=== PATIENT | female | born 1960 | race Caucasian/White ===

== ENCOUNTER → 2017-08-26 | Outpatient (CLI) | payer BC ==
[~2017-08-26] MED LIST: HYDR-3419 PO; IBUP-1105 PO; VITA1CAP57 PO
--- NOTE | 2017-08-26 13:50 | DIAGNOSTIC IMAGING REPORT ---
CHEST 2 VIEWS ROUTINE CLINICAL HISTORY: 57 years-old Female presenting with N20.1 Ureteral [id number]. TECHNIQUE: PA and lateral views of the chest were obtained. COMPARISON: None. FINDINGS: Cardiomediastinal silhouette normal. Lungs and pleural spaces clear. Osseous structures normal. Upper abdomen normal. IMPRESSION: 1. No acute cardiopulmonary disease. Electronically signed by: Babak Figueredo M.D. 08/26/2017 1:49 PM Dictated Date/Time: 08/26/2017 1:48 PM
--- NOTE | 2017-08-26 13:53 | DIAGNOSTIC IMAGING REPORT ---
KUB HISTORY: Left-sided nephrolithiasis. N20.1 Ureteral [id number] COMPARISON: Chest radiographs of same day. FINDINGS: The bowel gas pattern is non-obstructive. There is no organomegaly. Clips project over the pelvis suggesting bilateral tubo-ovarian occlusion devices. Calcifications are seen within the pelvis suggesting probable phleboliths. Renal shadows are partially obscured by overlying bowel gas. 3 mm radiodensity projecting over the superior pole left kidney is suspicious for possible nephrolithiasis. No ureteral calculi identified. No right-sided nephrolithiasis identified. No pneumoperitoneum or pneumatosis. No fracture. IMPRESSION: 1. 3 mm radiodensity projecting over the superior pole left kidney suggests nephrolithiasis. No definite ureteral calculi identified. 2. Multiple calcifications of the pelvis suggest phleboliths. Electronically signed by: Barney Gonzales M.D. 08/26/2017 1:52 PM Dictated Date/Time: 08/26/2017 1:49 PM
[2017-08-26 14:39] LABS: BASO % 0.6 %; BASO ABS # 0.04 K/uL (0-0.2); EOS % 0.7 %; EOS ABS # 0.05 K/uL (0-0.5); HEMATOCRIT 44.1 % (37-47); HEMOGLOBIN 14.6 g/dL (12.0-16.0); IG# 0.03 K/uL (0.00-0.02); LYMPH % 30.6 %; LYMPH ABS # 2.04 K/uL (1.2-3.4); MEAN CELL VOLUME 99.3 fL (80-100); MEAN CORPUSCULAR HEMOGLOBIN 32.9 pg (25-34); MEAN CORPUSCULAR HGB CONC 33.1 g/dl (32-36); MEAN PLATELET VOLUME 10.5 fL (7.4-10.4); MONO % 4.2 %; MONO ABS # 0.28 K/uL (0.11-0.59); NEUT % 63.5 %; NEUT ABS # 4.23 K/uL (1.4-6.5); PLATELET COUNT 285 K/uL (130-400); RED CELL DISTRIBUTION WIDTH CV 13.8 % (11.5-14.5); RED CELL DISTRIBUTION WIDTH SD 49.5 fL (36.4-46.3); WHITE BLOOD COUNT 6.67 K/uL (4.8-10.8)
== END | disposition home or self-care (01) ==
LOC: C.RAD 13:09
PROVIDERS: ATTEND Urology
DX: N20.1 Calculus of ureter (principal)

== ENCOUNTER → 2017-09-02 | Outpatient (CLI) | payer BC ==
--- NOTE | 2017-09-02 08:09 | DIAGNOSTIC IMAGING REPORT ---
KUB CLINICAL HISTORY: Ureteral stone. COMPARISON STUDY: CT of the abdomen and pelvis August 19, 2017 and KUB August 26, 2017. FINDINGS: Evaluation for ureteral calculi difficult given numerous phleboliths. A 5 mm x 2 mm left pelvic calcification could reflect a calculus at the left ureterovesical junction. The small left renal calculi shown on CT of August 19, 2017 are not visualized likely due to their size. There are tubal ligation clips. IMPRESSION: 5 mm x 2 mm left pelvic calcification which could reflect a calculus at the left ureterovesical junction. Electronically signed by: Willard Rodriguez M.D. 09/02/2017 8:08 AM Dictated Date/Time: 09/02/2017 8:02 AM
== END | disposition home or self-care (01) ==
LOC: C.RAD 06:08
PROVIDERS: ATTEND Urology
DX: N20.1 Calculus of ureter (principal)

== ENCOUNTER → 2017-09-02 | Day surgery (SDC) | payer BC ==
[2017-08-30 07:34] VITALS: Ht 160 cm; Wt 81.8 kg
[~2017-09-02] VITALS: Ht 160 cm; Wt 81.8 kg
[~2017-09-02] MED LIST changes: +ATROPINE SULFATE 0.1 MG/ML 5ML SYR IV PRN; +CIPROFLOXACIN 400MG / D5W IV SCH; +DEXAMETHASONE SOD INJ 4 MG/ML VIAL ONE; +EpHEDrine SULFATE INJ 50 MG/ML AMP IV PRN; +FENTANYL CITRATE INJ 50 MCG/1 ML 2 ML VIAL IV PRN; +FENTANYL CITRATE INJ 50 MCG/1 ML 2 ML VIAL ONE; +LACTATED RINGER'S 1000ML 1,000 ML IV SCH; +LIDOCAINE HCL 2% 2 ML VIAL (20MG/ML) ONE; +MIDAZOLAM HCL 1 MG/ML 2ML VIAL ONE; +ONDANSETRON INJ 2 MG/ML 2 ML VIAL IV PRN; +ONDANSETRON INJ 2 MG/ML 2 ML VIAL ONE; +PROMETHAZINE HCL INJ 6.25 MG in SODIUM CHLORIDE 0.9% 50ML 50 ML IV PRN; +PROPOFOL IV EMULSION 10 MG/ML 20 ML VIAL IV ONE
--- NOTE | 2017-09-02 08:48 | History & Physical Bridge - SC ---
H&P Re-Evaluation Bridge Note: I have examined the patient, reviewed the History & Physical and in the interval since the performance of the History & Physical I have noted the following changes of clinical significance: No changes noted
--- NOTE | 2017-09-02 09:33 | [facility] Post Operative Brief Note ---
Immediate Operative Summary Operative Date Sep 02, 2017. Pre-Operative Diagnosis Left ureteral stone Post-Operative Diagnosis Same as pre-op Procedure(s) Performed Left Extracorporeal Shock Wave Lithotripsy - Ureteral Surgeon Dr. Juarez Tower Technician Surgeon(s) None Estimated Blood Loss 0 mL Findings l ureteral stone Specimens None Disposition Recovery Room / PACU
--- NOTE | 2017-09-02 09:38 | Discharge Instructions-SurgCtr ---
Discharge Instructions Date of Service Sep 02, 2017. Visit Reason for Visit: Stones Discharge Discharge Diagnosis / Problem: left ureteral stone Discharge Goals Goal(s): Decrease discomfort, Increase independence, Improve disease control Medications Stopped Medications Name(s): ibuprofen stopped last dose last tuesday. Activity Recommendations Activity Limitations: per Instructions/Follow-up section (no driving on narcotics) Anesthesia . Post Anesthesia Instructions: If you have had General Anesthesia or IV Sedation: * Do not drive today. * Resume driving when surgeon permits. * Do not make important decisions or sign legal documents today. * Call surgeon for: 1. Temperature elevations greater than 101 degrees F. 2. Uncontrollable pain. 3. Excessive bleeding. 4. Persistent nausea and vomiting. 5. Medication intolerance (nausea, vomiting or rash). * For nausea and vomiting use only clear liquids such as: tea, soda, bouillon until nausea subsides, then gradually increase diet as tolerated. * If you have any concerns or questions, call your surgeon's office. If physician is unavailable and it is an emergency, call 911 or go to the nearest emergency room. . Diet Recommendations Home Diet: resume previous diet Procedures Procedures Performed: Left Extracorporeal Shock Wave Lithotripsy - Ureteral Pending Studies Studies pending at discharge: no Medical Emergencies . Who to Call and When: Medical Emergencies: If at any time you feel your situation is an emergency, please call 911 immediately. . Non-Emergent Contact Non-Emergency issues call your: Urologist Call Non-Emergent contact if: temperature is above 100.5, temperature is above 101, your pain is not controlled, your pain is worsening . . "Provider Documentation" section prepared by Mike Juarez. .
[2017-09-02 10:45] VITALS: TEMP 36.7
--- NOTE | 2017-09-02 10:47 | Anesthesia Progress Nt - [facility] ---
Anesthesia Post Op Note Date & Time Sep 02, 2017 at 10:47 Vital Signs Pain Intensity: 0 Vital Signs Past 12 Hours Date Time Temp Pulse Resp B/P (MAP) Pulse Ox O2 Delivery O2 Flow Rate FiO2 09/02/17 10:45 36.7 73 16 131/86 (101) 97 Room Air 09/02/17 10:35 129/77 09/02/17 10:33 69 16 09/02/17 10:33 36.4 77 16 129/77 95 Room Air 09/02/17 10:33 72 16 95 09/02/17 10:30 132/83 09/02/17 10:28 83 19 99 09/02/17 10:28 83 19 09/02/17 10:25 133/79 09/02/17 10:23 74 15 09/02/17 10:23 75 15 97 09/02/17 10:20 134/77 09/02/17 10:18 79 17 09/02/17 10:18 79 17 97 09/02/17 10:15 124/82 09/02/17 10:13 77 16 97 09/02/17 10:13 78 16 09/02/17 10:10 136/82 09/02/17 10:08 85 7 09/02/17 10:08 84 7 99 09/02/17 10:05 121/66 09/02/17 10:03 76 12 09/02/17 10:03 74 12 99 09/02/17 10:00 124/79 09/02/17 09:58 85 14 09/02/17 09:58 82 14 99 09/02/17 09:55 122/82 09/02/17 09:53 82 15 127/79 99 09/02/17 09:53 82 15 09/02/17 09:53 36.8 86 18 122/79 99 Diffusion Mask 6 09/02/17 07:11 36.5 83 18 125/83 (97) 97 Room Air Notes Mental Status: alert / awake / arousable, participated in evaluation Pt Amnestic to Procedure: Yes Nausea / Vomiting: adequately controlled Pain: adequately controlled Airway Patency, RR, SpO2: stable & adequate BP & HR: stable & adequate Hydration State: stable & adequate Anesthetic Complications: no major complications apparent
[2017-09-02 11:10] VITALS: BP 126/85; PULSE 76; O2SAT 95
--- NOTE | 2017-09-02 15:23 | OPERATIVE REPORT ---
DATE OF OPERATION: 09/02/2017 PREOPERATIVE DIAGNOSIS: Left ureteral stone. POSTOPERATIVE DIAGNOSIS: Same. PROCEDURE: Left ureteral ESWL. SURGEON: Mike Juarez MD. ANESTHESIA: General. INDICATIONS: The patient is a 57-year-old female who had a CAT scan that showed a left distal stone that was somewhat difficult to visualize on KUB. There was an obscured area and knowing where the stone was in the CAT scan just above several clips, was able to visualize what we thought was a stone in the distal left ureter that was corresponding to the size of the stone approximately 7 mm. Lithotripsy was performed on this with 3000 shocks being given, the majority at level 5. At the end of the procedure, the patient was transferred to the recovery room in stable condition. I attest to the content of the Intraoperative Record and any orders documented therein. Any exception s are noted below.
== END | disposition home or self-care (01) ==
LOC: X.SURG 08-30 11:09
PROVIDERS: ATTEND Urology
DX: N20.1 Calculus of ureter (principal); G47.33 Obstructive sleep apnea (adult) (pediatric); F17.200 Nicotine dependence, unspecified, uncomplicated; Z80.1 Family history of malignant neoplasm of trachea, bronchus and lung; Z83.3 Family history of diabetes mellitus

== ENCOUNTER → 2017-09-14 | Outpatient (CLI) | payer BC ==
[~2017-09-14] MED LIST changes: -ATROPINE SULFATE 0.1 MG/ML 5ML SYR IV PRN; -CIPROFLOXACIN 400MG / D5W IV SCH; -DEXAMETHASONE SOD INJ 4 MG/ML VIAL ONE; -EpHEDrine SULFATE INJ 50 MG/ML AMP IV PRN; -FENTANYL CITRATE INJ 50 MCG/1 ML 2 ML VIAL IV PRN; -FENTANYL CITRATE INJ 50 MCG/1 ML 2 ML VIAL ONE; -LACTATED RINGER'S 1000ML 1,000 ML IV SCH; -LIDOCAINE HCL 2% 2 ML VIAL (20MG/ML) ONE; -MIDAZOLAM HCL 1 MG/ML 2ML VIAL ONE; -ONDANSETRON INJ 2 MG/ML 2 ML VIAL IV PRN; -ONDANSETRON INJ 2 MG/ML 2 ML VIAL ONE; -PROMETHAZINE HCL INJ 6.25 MG in SODIUM CHLORIDE 0.9% 50ML 50 ML IV PRN; -PROPOFOL IV EMULSION 10 MG/ML 20 ML VIAL IV ONE
== END | disposition home or self-care (01) ==
LOC: C.LABSPEC 17:20
PROVIDERS: ATTEND Urology
DX: N20.1 Calculus of ureter (principal)

== ENCOUNTER → 2017-09-14 | Outpatient (CLI) | payer BC ==
--- NOTE | 2017-09-14 12:18 | DIAGNOSTIC IMAGING REPORT ---
KUB CLINICAL HISTORY: N20.1 Ureteral [id number] nephrocalcinosis COMPARISON STUDY: 09/02/2017 FINDINGS: The soft tissues, psoas shadows, renal outlines and intestinal gas pattern appear normal. There is no evidence for bowel obstruction. No abnormal abdominal calcifications are seen. The calcification of the distal left ureter measuring 5 x 2 mm on the prior study that has passed. IMPRESSION: Apparent interval passage of the 5 x 2 mm low pelvic calcification The above report was generated using voice recognition software. It may contain grammatical, syntax or spelling errors. Electronically signed by: Nathanael Mascorro M.D. 09/14/2017 12:17 PM Dictated Date/Time: 09/14/2017 12:14 PM
== END | disposition home or self-care (01) ==
LOC: C.RAD 11:39
PROVIDERS: ATTEND Urology
DX: N20.1 Calculus of ureter (principal)

== ENCOUNTER → 2018-01-04 | Outpatient (CLI) | payer BC ==
--- NOTE | 2018-01-04 14:35 | DIAGNOSTIC IMAGING REPORT ---
IV PYELOGRAM CLINICAL HISTORY: Follow-up ureterolithiasis. COMPARISON STUDY: KUB dated 09/14/2017. Abdominal CT dated 08/19/2017. TECHNIQUE: An abdominal lead software development engineer radiograph is performed. IVP pyelogram was then performed following the IV administration of 100 cc of Optiray 300, tomographic images are acquired in the corticomedullary and excretory phases of enhancement. Overhead views of the renal collecting system and bladder were obtained in multiple obliquities both pre and post void. FINDINGS: Abdominal lead software development engineer radiograph shows a nonobstructed abdominal bowel gas pattern. Surgical clips are noted in the pelvis. There is no radiographic evidence of nephrolithiasis. Numerous phleboliths are seen in the pelvis. The bony structures appear intact. Following contrast menstruation there is symmetric renal cortical enhancement and contrast excretion. No hydronephrosis is seen. A small extrarenal pelvis is noted on the right. There are no filling defects identified within the renal pelvis bilaterally or along the course of the ureters to suggest urothelial lesion. The bladder is normal as imaged. There is a small to moderate post void residual. IMPRESSION: 1. There is no radiographic evidence of nephrolithiasis. 2. Unremarkable IV pyelogram. 3. There is a small to moderate postvoid bladder residual. Electronically signed by: Jt Mondragon M.D. 01/04/2018 2:34 PM Dictated Date/Time: 01/04/2018 2:31 PM
== END | disposition home or self-care (01) ==
LOC: C.RAD 12:43
PROVIDERS: ATTEND Urology
DX: N20.1 Calculus of ureter (principal)

== ENCOUNTER 2022-03-05 06:27 | Observation (INO) ==
--- NOTE | 2022-01-28 09:15 | PAT Medication Instructions ---
Medication Instructions Date of Service January 28, 2022 Home Medications ibuprofen 200 mg tablet 600 mg PO BID PRN omeprazole 20 mg capsule,delayed release 20 mg PO QAM ascorbic acid (vitamin C) 1,000 mg tablet (Vitamin C With Tona Hips) 1 g PO QAM calcium carbonate 500 mg-vitamin D3 3.125 mcg (125 unit) tablet 1 tab PO BID zinc 50 mg capsule 50 mg PO QAM ASK your surgeon for instructions ibuprofen 200 mg tablet 600 mg PO BID PRN DO NOT take the morning of surgery ascorbic acid (vitamin C) 1,000 mg tablet (Vitamin C With Tona Hips) 1 g PO QAM calcium carbonate 500 mg-vitamin D3 3.125 mcg (125 unit) tablet 1 tab PO BID zinc 50 mg capsule 50 mg PO QAM Take morning of surgery With a small sip of water, OTHERWISE NOTHING TO EAT OR DRINK AFTER MIDNIGHT: omeprazole 20 mg capsule,delayed release 20 mg PO QAM Take evening before surgery calcium carbonate 500 mg-vitamin D3 3.125 mcg (125 unit) tablet 1 tab PO BID Other Notes If you have any questions please call us at [phone] or [phone] or [phone] or [phone]
--- NOTE | 2022-02-09 10:55 | Anesthesiology Consultation ---
Date of Service February 09, 2022 Assessment & Plan (1) Encounter for pre-operative examination: COVID screening: Per assessment on 02/09: No known COVID-19 positive contacts or current COVID-19 related symptoms. Travel screen negative x 2+ weeks. Patient was Covid positive (home test) 01/25. Pt had Covid positive PCR at [facility] 01/27 (report scanned into [employer]). Symptoms at time of fatigue, cold symptoms which have resolved. Surgeon arranging preop COVID testing. Awaiting results. Chart Review Chart Review: Acceptable Risk for Surgery and Patient seen in Pre Admission Testing Teaching & Discussion Pre-Anesthesia Teaching/Discussion Notes: Instructed NPO after midnight before surgery,except medications with 15 cc of water. Medication instructions pr ovided according to the PAT guidelines. History Surgery Operation Date: 03/05/22 07:00 Proposed Procedures p Right Total Knee Arthroplasty - Wallace Pinto DO Height/Weight Height: 5 ft 3 in Weight: 101.9 kg Allergies Allergy/AdvReac Type Severity Reaction Status Date / Time bee venom protein (honey bee) Allergy Severe ANAPHYLAXIS Verified 01/27/22 08:52 No Known Drug Allergies Allergy Unknown . Verified 01/27/22 08:52 Medications Home Medications Medication Instructions Recorded Confirmed Last Taken ibuprofen 200 mg tablet 600 mg PO BID PRN 12/16/21 01/27/22 Unknown omeprazole 20 mg capsule,delayed 20 mg PO QAM 12/16/21 01/27/22 Unknown release ascorbic acid (vitamin C) 1,000 mg 1 g PO QAM 01/27/22 01/27/22 Unknown tablet (Vitamin C With Tona Hips) calcium carbonate 500 mg-vitamin 1 tab PO BID 01/27/22 01/27/22 Unknown D3 3.125 mcg (125 unit) tablet zinc 50 mg capsule 50 mg PO QAM 01/27/22 01/27/22 Unknown Past Medical History Medical History Cancer BCC (arm) COVID-19 virus detected Covid positive home test (01/25/22) and PCR test (01/27/22- report scanned into [employer]) > symptoms at time: cold symptoms, fatigue > resolved GERD (gastroesophageal reflux disease) Kidney stones 2016 Migraine Hx Osteoarthritis Sleep apnea CPAP (compliant) Exercise / Class Metabolic Activity III < 4 Walking/Shop/Light housework (one FS (no CP, occ mild SOB)) Past Family History Family History Mother Family history of reaction to anesthesia PONV Grandmother (Maternal) Family history of reaction to anesthesia PONV-SLOW TO WAKE UP Aunt No problems noted. Family/Other Family history of diabetes mellitus Uncle Family history of diabetes mellitus Past Surgical History Surgical History History of bilateral tubal ligation History of breast biopsy BENIGN History of colonoscopy 2015 History of dilatation and curettage History of lithotripsy Past Anesthesia History No Hx of Anesthesia Complications FHX: Mother/grandmother- PONV, grandmother- slow to wake History of PONV No Hx of PONV (Pt reports that she has never had PONV personally but has strong family hx- she states she has received pretreatment in the past- no further details) Social History Smoking Status: Former smoker Do You Dip or Chew Tobacco: No Smoking End Date: Hx Alcohol Use: Yes Alcohol type: wine alcohol intake frequency: a few times a month Hx Substance Use: No Review of Systems Patient denies chest pain, shortness of breath, fever, chills, cough, wheezing, palpitations. Physical Exam Vital Signs VITALS BP 117/75 P 86 TEMP 98.2 SP02 93%RA RESP 18 PHYSICAL Full cervical extension range of motion. Full TMJ range of motion. TMD 3 finger breaths Mallampati Score 2 Dentition: intact, possible crown Lungs: clear throughout to auscultation Cardiac: regular rate and rhythm, no murmurs noted Spine: normal Carotid arteries: negative bruit Extremities: no edema Short neck Lab Results Anesthesia Preop Results Results Anesthesia Widget: WBC 8.02 K/uL (4.8-10.8) 02/09/22 Hgb 12.3 g/dL (12.0-16.0) 02/09/22 Hct 40.2 % (37-47) 02/09/22 Plt 353 K/uL (130-400) 02/09/22 Na 143 mmol/L (136-145) 02/09/22 K 4.1 mmol/L (3.5-5.1) 02/09/22 Cl 106 mmol/L (98-107) 02/09/22 CO2 31 mmol/L (21-32) 02/09/22 BUN 12 mg/dl (6-23) 02/09/22 Creat 0.55 mg/dl (0.6-1.2) L 02/09/22 Glucose Level 84 mg/dl (70-99(Fasting)) 02/09/22 PT 10.6 Seconds (9.0-12.0) 02/09/22 PTT 25.1 Seconds (21.0-31.0) 02/09/22 INR 1.0 (0.9-1.1) 02/09/22 Blood Type O Positive 02/09/22 Antibody Screen NEGATIVE 02/09/22 Testing Electrocardiogram Date: 02/09/22 NSR at 83bpm. Chest X-Ray Date: 02/09/22 FINDINGS: The cardiac silhouette is upper limits of normal in size. No pneumothorax, pleural effusion, airspace consolidation or overt pulmonary edema. Eventration of the right hemidiaphragm. Degenerative changes of the shoulders and spine. IMPRESSION: No acute process.
--- NOTE | 2022-03-04 07:41 | History & Physical Report ---
Date of Service March 04, 2022 Assessment & Plan (1) Osteoarthritis of right knee: We will proceed with a right total knee arthroplasty. Postoperatively she will be started on aspirin for DVT prophylaxis and kept overnight in the hospital for postop medical management. She plans to have the hospital set up home health upon discharge. History of Present Illness Chief Complaint: Osteoarthritis of the right knee. Primary Care Provider: Geena Encinas DO Tamera is a pleasant 61-year-old female who has been dealing with chronic worsening bilateral knee pain right worse than left. X-rays have shown advanced osteoarthritis of both knees. After failing extensive conservative treatment including years of injections, she has elected to proceed with a right total knee arthroplasty. . Allergies Allergy/AdvReac Type Severity Reaction Status Date / Time bee venom protein (honey bee) Allergy Severe ANAPHYLAXIS Verified 01/27/22 08:52 No Known Drug Allergies Allergy Unknown . Verified 01/27/22 08:52 Home Medications Medication Instructions Recorded Confirmed Type ibuprofen 200 mg tablet 600 mg PO BID PRN Pain 12/16/21 01/27/22 History omeprazole 20 mg capsule,delayed 20 mg PO QAM 12/16/21 01/27/22 History release ascorbic acid (vitamin C) 1,000 mg 1 g PO QAM 01/27/22 01/27/22 History tablet (Vitamin C With Tona Hips) calcium carbonate 500 mg-vitamin 1 tab PO BID 01/27/22 01/27/22 History D3 3.125 mcg (125 unit) tablet zinc 50 mg capsule 50 mg PO QAM 01/27/22 01/27/22 History Past Med/Surg History Medical History Cancer BCC (arm) COVID-19 virus detected Covid positive home test (01/25/22) and PCR test (01/27/22- report scanned into [employer]) > symptoms at time: cold symptoms, fatigue > resolved GERD (gastroesophageal reflux disease) Kidney stones 2016 Migraine Hx Osteoarthritis Sleep apnea CPAP (compliant) Surgical History History of bilateral tubal ligation History of breast biopsy BENIGN History of colonoscopy 2016 History of dilatation and curettage History of lithotripsy Family History Mother Family history of reaction to anesthesia PONV Grandmother (Maternal) Family history of reaction to anesthesia PONV-SLOW TO WAKE UP Aunt No problems noted. Family/Other Family history of diabetes mellitus Uncle Family history of diabetes mellitus Social History Smoking Status: Former smoker Second Hand Exposure: Yes (SPOUSE USED TO SMOKE); Hx Alcohol Use: Yes Alcohol type: wine Hx Substance Use: No Preferred Language: German Communication Ability: Effective Bench Molder Apprentice Required: No Beliefs That Will Affect Care: None Current Living Situation: Spouse current occupational status: retired Feels Safe at Home: Yes Assistive Devices: Cane and Glasses Review of Systems All systems reviewed & are unremarkable except as noted in HPI & below. Physical Exam On physical examination the right knee, she has a varus deformity. She has range of motion of 0 to 120 degrees. She has a trace effusion. She has pain of the distal femoral condyles.. Constitutional WD/WN, vitals as above Respiratory normal respiratory effort, lungs clear to auscultation Cardiovascular RRR, no murmur, no edema Results & Data Results & Data Laboratory Results . Diagnostic Findings X-rays of the right knee show advanced osteoarthritis with joint space narrowing, osteophyte formation, and [id number] articulation. PG Care Time/CCT Total # of Minutes Spent Total Time Spent with Patient: Total time spent is greater than 50% in coordination of care (as documented) at patient's floor/unit and/or counseling patient: Coding Level of Care Code None Diagnoses Osteoarthritis of right knee M17.11
[~2022-03-05 06:27] MED LIST changes: +ACETAMINOPHEN 500 MG TAB PO SCH; +GABAPENTIN 600 MG DOSE PO SCH; -HYDR-3419 PO; -IBUP-1105 PO; +Ketorolac (*for OR use only*) 30 MG, dexAMETHasone 4 MG, KETAMINE HCL (**OR use only) 1... INFIL SCH; +LR 500ML BOLUS, THEN 15ML/HR IV SCH; +LR 60ML/HR IV SCH; +TRANEXAMIC ACID 1,000 MG **IV Intra-op IV SCH; +TRANEXAMIC ACID 1,000 MG **IV Pre-op IV SCH; -VITA1CAP57 PO; +ceFAZolin 2000MG 2,000 MG/15 ML SYR IV SCH; +dexAMETHasone 4 MG TAB PO SCH
[2022-03-05] MEDS ORDERED: BUPIVACAINE 0.5 % 5 MG/1 ML PF 10ML VIAL ONE (06:37)
--- NOTE | 2022-03-05 06:42 | History & Physical Bridge Note ---
Date of Service March 05, 2022 History & Physical Bridge Note I have examined the patient, reviewed the History & Physical and in the interval since the performance of the History & Physical I have noted the following changes of clinical significance: no changes noted
[2022-03-05] MEDS ORDERED: LIDOCAINE 2% MPF LOCAL 5 ML VIAL INFIL ONE (06:45)
[2022-03-05] MEDS ORDERED: PROPOFOL IV EMULSION 10 MG/ML 20 ML VIAL IV ONE (06:45)
[2022-03-05] MEDS ORDERED: MIDAZOLAM HCL 1 MG/ML 2ML VIAL ONE (06:45)
[2022-03-05] MEDS ORDERED: ROPIVACAINE 0.5% 5 MG/ML 30 ML VIAL ONE (06:57)
[2022-03-05] MEDS ORDERED: ORTHO JOINT ANESTHETIC ONE (07:07)
[2022-03-05] MEDS ORDERED: ePHEDrine sulfate 50 MG/ML AMP IV PRN (07:25)
[2022-03-05] MEDS ORDERED: ATROPINE SULFATE 0.1 MG/ML 10ML SYR IV PRN (07:25)
[2022-03-05] MEDS ORDERED: ONDANSETRON INJ 2 MG/ML 2 ML VIAL IV PRN ×2 (07:25→11:37)
[2022-03-05] MEDS ORDERED: fentaNYL citrate 100 MCG/2 ML VIAL IV PRN (07:25)
--- NOTE | 2022-03-05 09:25 | Operative Report ---
PG Post Operative Report Pre & Post Diagnosis Operation Date: 03/05/22 08:00 Pre-Op Diagnosis: Right Knee Osteoarthritis Post-Op Diagnosis: Right Knee Osteoarthritis I identified the patient and participated in the time-out.: Yes Procedure Operation Date: 03/05/22 08:00 Actual Procedures p Right Total Knee Arthroplasty(Right) - Wallace Pinto DO Surgeon Wallace Pinto DO Redevelopment Specialist Wallace Higginbotham PA-C Estimated Blood Loss 30 Findings Consistent with Post-Op Diagnosis Specimens Right femoral and tibial bone Description of Procedure Implants used: I used a Ankit Persona total knee arthroplasty system with a size 9 narrow PS femur, E tibia with a 30 mm stem extension, 31 oval patella, and a size 10 CPS polyethylene bearing. All components were cemented in place with Biomet cement. Tamera arrived [facility] for the above procedure. She was seen in the preoperative holding area and the operative extremity was identified and signed. She was given a preoperative antibiotic, TXA, a spinal anesthetic and an adductor nerve block. She was taken back to the operating room and laid on the table in supine position. She was given basic sedation. The operative knee was then prepped and draped in sterile fashion. A timeout was done, and the patient and the operative extremity was properly identified. A midline incision was made directly over the patella. Dissection was taken down to the extensor mechanism. A subvastus arthrotomy was used. The medial retinaculum was released and the fat pad was mostly excised. The knee was flexed and the ACL, PCL, and meniscus were removed. A drill was sent down the center of the femoral canal followed by an intramedullary fly. Off that fly a distal femoral cutting block was placed. 9 mm was resected off the distal femur at 5 of valgus. A posterior referencing AP sizing guide was then placed on the distal femur. The femur measured to be a size 9. 2 drill holes were placed in 3 of external rotation. A 4-in-1 cutting block was then impacted into place. Anterior, posterior, and chamfer cuts were then made. The proximal tibia was then exposed. An external tibial alignment guide was placed. A tibial cut guide was then anchored in place and the proximal tibia was then resected. The posterior aspect of the knee was then opened up and any additional meniscus fragments and osteophytes were removed. The tibia measured to be a size E. The tibial plate was then placed in the appropriate rotation and the tibia was drilled and punched. Trial components were then placed. I used a size 10 CPS polyethylene insert. The knee was brought through a full range of motion and felt to be stable. The peg holes for the femoral component were then drilled. The patella was then everted and 9 mm was resected off the posterior aspect of the patella. The patella measured to be a size 31 oval. 3 peg holes were then drilled. A trial patella was placed. The knee was once again brought through a full range of motion and felt to be stable. Trial components were then removed. The surrounding soft tissues were injected with 100 cc of an orthopedic pain control cocktail. All components were then cemented into place with Biomet cement. The final polyethylene insert was then snapped into place. Once cement was dry the tourniquet was deflated. Hemostasis was obtained. A dilute betadyne lavage was then done for 3 minutes. The joint was then irrigated with normal saline solution. The subvastus arthrotomy was then closed with #1 Vicryl suture. The skin was closed with 2-0 Vicryl, 3-0V lock suture, and kathy. A soft compressive dressing was placed. She was then transferred to a hospital bed and taken to the postanesthesia care unit in stable condition. She tolerated the procedure well. Wallace Higginbotham PA-C, was present for the entire procedure. He was critical for patient positioning, prepping, draping, retraction exposure, wound closure and application of sterile dressing. I attest to the content of the Intraoperative Record and any orders documented therein. Any exceptions are noted below.
--- NOTE | 2022-03-05 10:45 | XRay Report ---
XR knee RT 1 or 2V routine CLINICAL HISTORY: Surgical Post Op TECHNIQUE: 2 views of the right knee were obtained. Comparison: None available at the time of this dictation. FINDINGS: Patient is status post total knee arthroplasty with expected postsurgical changes including soft tiss ue swelling and subcutaneous emphysema. No periarticular lucency or hardware fracture is seen. Joint spaces are well-preserved. No joint effusion is seen. No soft tissue abnormality is seen. IMPRESSION: Expected postoperative appearance status post placement of total knee arthroplasty. ACT 112: Negative or not required by law. Electronically signed by: Nahum Shearer M.D. 03/05/2022 10:43 AM
--- NOTE | 2022-03-05 11:21 | Anesthesiology Progress Note ---
Date of Service March 05, 2022 Anesthesia Post Procedure Vital Signs Vital Signs: Temp Pulse Pulse Resp BP Pulse Ox O2 Del Method 03/05/22 10:25 97.9 F 92 H 20 139/86 92 Room Air 03/05/22 10:15 90 21 150/97 H 93 Room Air 03/05/22 10:05 86 18 139/86 97 Oxymask 03/05/22 10:45 97.9 F 86 17 142/89 H 94 Nasal Cannula 03/05/22 10:35 97.9 F 85 17 136/97 94 Nasal Cannula 03/05/22 09:55 90 20 144/98 H 98 Oxymask 03/05/22 09:48 98.1 F 94 H 18 134/91 97 Oxymask 03/05/22 06:54 97.9 F 94 H 18 140/85 95 Room Air 03/05/22 06:54 Room Air, CPAP O2 Flow Rate 03/05/22 10:25 03/05/22 10:15 03/05/22 10:05 3 03/05/22 10:45 2 03/05/22 10:35 2 03/05/22 09:55 5 03/05/22 09:48 7 03/05/22 06:54 03/05/22 06:54 Pain Intensity Right Knee: Pain Intensity: 0 Transfer of Care Handoff Completed per policy Notes Mental Status: alert / awake / arousable and participated in evaluation Patient Amnestic to Procedure: Yes Nausea / Vomiting: adequately controlled Pain: adequately controlled Airway Patency, RR, SpO2: stable & adequate BP & HR: stable & adequate Hydration State: stable & adequate Neuraxial Anesthesia: was administered and sensory block is resolving Anesthetic Complications: no major complications apparent and Pt Satisfied with anesthetic care
[2022-03-05] MEDS ORDERED: bisacodyL 10 MG SUPP PR PRN (11:37)
[2022-03-05] MEDS ORDERED: HYDROmorphone INJ 0.5 MG/0.5 ML SYR IV PRN (11:37)
[2022-03-05] MEDS ORDERED: NALOXONE HCL 0.4 MG/1 ML VIAL/CARP IV PRN (11:37)
[2022-03-05] MEDS ORDERED: METOCLOPRAMIDE HCL INJ 5 MG/ML 2 ML VIAL IV PRN (11:37)
[2022-03-05] MEDS ORDERED: MAGNESIUM HYDROXIDE SUSP 30 ML UDC PO PRN (11:37)
[2022-03-05] MEDS: KETOROLAC 30 MG/ML VIAL IV SCH ×3 (15:06→23:33)
[2022-03-05] MEDS: ACETAMINOPHEN 500 MG TAB PO SCH ×2 (15:06→20:20)
[2022-03-05] MEDS: SODIUM CHLORIDE 0.9% 1000ML 1,000 ML IV SCH ×2 (15:07→23:35)
[2022-03-05] MEDS: ASPIRIN 81 MG ECTAB PO SCH (20:19)
[2022-03-05] MEDS: DOCUSATE SODIUM 100 MG CAP PO SCH (20:19)
[2022-03-05] MEDS: ceFAZolin 2000MG 2,000 MG/15 ML SYR IV SCH (20:20)
[2022-03-05] MEDS ORDERED: SENNA 8.6 MG TAB PO SCH (21:00)
[2022-03-05] MEDS: oxyCODONE HCL IR 5 MG TAB (IMMEDIATE RELEASE) PO PRN (23:33)
[2022-03-06] MEDS: ceFAZolin 2000MG 2,000 MG/15 ML SYR IV SCH (01:06)
--- NOTE | 2022-03-06 06:43 | Orthopedic Progress Note ---
Date of Service March 06, 2022 Assessment & Plan (1) Status post right knee replacement: Overall she is doing well. She is having much pain in the right knee. She will be seen by physical therapy today for ambulation and range of motion exercises. She is on aspirin for DVT prophylaxis. She can be discharged home later today. She will follow-up with orthopedics in 2 weeks. Subjective Tamera was seen and examined at bedside this morning. Overall she doing very well. She is having much pain in the right knee. She is been up and ambulating to the bathroom. She has no complaints.. Review of Systems All systems reviewed & are unremarkable except as noted in HPI & below. Physical Exam On physical examination of the right knee, the dressing is clean and dry. Her leg is out in full extension. She has active dorsiflexion plantarflexion of her right ankle.. Results & Data Results & Data Laboratory Results . Diagnostic Findings Postoperative x-rays of the right knee show the prosthesis to be in anatomic alignment without any evidence of fracture, desiccation, or loosening. PG Care Time/CCT Total # of Minutes Spent Total Time Spent with Patient: Total time spent is greater than 50% in coordination of care (as documented) at patient's floor/unit and/or counseling patient: Coding Level of Care Code 55444 Post Operative Follow-Up Diagnoses Status post right knee replacement Z96.651
--- NOTE | 2022-03-06 06:47 | Discharge Summary ---
Date of Service March 06, 2022 Admission HPI (Per Admitting) Tamera is a pleasant 61-year-old female who has been dealing with chronic worsening bilateral knee pain right worse than left. X-rays have shown advanced osteoarthritis of both knees. After failing extensive conservative treatment including years of injections, she has elected to proceed with a right total knee arthroplasty. . Admission Exam (Per Admitting) On physical examination the right knee, she has a varus deformity. She has range of motion of 0 to 120 degrees. She has a trace effusion. She has pain of the distal femoral condyles.. Principal Diagnosis Same as "Discharge Diagnosis" noted below under Discharge Instructions. Discharge Exam On physical examination of the right knee, the dressing is clean and dry. Her leg is out in full extension. She has active dorsiflexion plantarflexion of her right ankle.. Discharge Data Procedures Performed Operation Date: 03/05/22 08:00 Actual Procedures p Right Total Knee Arthroplasty(Right) - Wallace Pinto DO Ordered Studies 03/05/22 05:00 US - OR guided needle placemen Routine Hospital Course (1) Status post right knee replacement: On March 05, 2022 Tamera arrived at [facility] and underwent a right knee replaced without complication. She had a spinal anesthetic. P ostoperatively she was started on aspirin for DVT prophylaxis and transferred to the general orthopedic floors. Her hospital course was uneventful. On postop day #1, her vital signs were stable and her pain was well controlled. She was able to participate well with physical therapy doing ambulation and range of motion exercises. She was then discharged home. She will follow-up with orthopedics in 2 weeks. PG Care Time/CCT Total # of Minutes Spent Total Time Spent with Patient: Total time spent is greater than 50% in coordination of care (as documented) at patient's floor/unit and/or counseling patient: Discharge Plan Discharge Items Patient Disposition: Home - Home Health Services Reason For Visit: Right Knee Osteoarthritis Discharge Diagnosis: Right knee replacement Activity: Per Instructions section Non-emergency contact: Surgeon Call non-emergency contact if: your wound has increased redness and your wound has increased drainage Follow-up/Referrals: Geena Encinas DO [Primary Care Provider] - Diet: Regular Addtl Attending Provider Instructions: Activity and Therapy Recommendations: * If you are using [facility] then therapy will be provided at your home until they feel you have accomplished all of your goals. * If you are using [facility] then Physical Therapy will be provided until they feel you are ready to start Outpatient Physical Therapy. * If you are not using home therapy then Outpatient Physical Therapy should start about 3-5 days from your day of surgery. Therapy will last about 6-10 weeks * It is important not to put a pillow under your knee when you are relaxing or sleeping. It is just as important to make sure you are getting your knee perfectly straight as it is to regain your knee bend. * You were shown a series of exercises in the hospital. Do these exercises three times each day including the exercises you were shown in physical therapy. * Get up and walk several times each day. For the first four weeks, try not to stand or walk for more than one hour at a time. If you do stand or walk for more than one hour, you will not hurt anything, but your leg will likely swell. * As you feel comfortable, you may change from the walker or crutches to a cane and then to independent walking. Medications: * Narcotic You will likely be sent home from the hospital with a prescription for the narcotic pain medication that worked best throughout your stay. * Aspirin Most patients will be required to take Aspirin 81mg twice a day for 6 weeks after surgery. This is obtained [id number] and a prescription is not necessary. * Other medications may be prescribed for specific circumstances. If you have any questions, please call the office at . * Resume previous home medications unless otherwise instructed TEDs/Elastic Stockings: The white elastic stockings help limit swelling and prevent blood clots from forming in your legs.~ The more you wear them, the more they work. Wear them for six weeks. Dressing Care: The dressing can be changed after physical therapy on postop day #1. Daily dry dressing changes for a few days, especially if the incision is still draining some. If the incision is not draining then you may leave the kathy open to air. If there is a little bit of drainage or if the kathy are getting stuck on your clothing then cover the incision with a dry dressing. The kathy will be removed at your 2 week follow-up appointment. Showering: You may shower 5 days from the day of surgery as long as the incision is no longer draining. You may shower with the kathy exposed. Let soapy water run over the kathy and pat them dry. Do not scrub or soak the incision. Things To Watch For: * Drainage from the incision site that occurs more than one week after your surgery. * Increased redness at the incision site. * Fever above 102 degrees Fahrenheit. * Unusual chest pain or shortness of breath. * Call [facility] at with any of the above problems Follow-Up Visit: Follow-up with Dr. Pinto's PA (Wallace Higginbotham) 2-3 weeks after your day of surgery. He will remove your kathy and answer any questions. If you have any additional questions or concerns, Dr Pinto is usually in the office at the same time and will be available An appointment was probably scheduled when you signed-up for surgery in the office. If you have any questions call Office Instructions: More detailed instructions as well as Frequently Asked Questions were provided in a folder by our office when you signed-up for surgery. Please review these instructions when you get home. If you have any further questions or concerns, please feel free to call the office at [phone] Pending Studies at Discharge: No Stand-Alone Forms: My [facility], Smoking Cessation Medications and DC Order Prescriptions: New oxycodone-acetaminophen 5-325 mg tablet 1 tab PO Q6H PRN (Reason: pain) Qty: 30 0RF aspirin 81 mg Tablet,Delayed Release (Dr/Ec) 81 mg PO BID 42 Days Qty: 84 0RF Continued omeprazole 20 mg capsule,delayed release(DR/EC) 20 mg PO QAM ibuprofen 200 mg tablet 600 mg PO BID PRN (Reason: Pain) ascorbic acid (vitamin C) [Vitamin C With Tona Hips] 1,000 mg Tablet 1 g PO QAM zinc 50 mg Capsule 50 mg PO QAM calcium carbonate-vitamin D3 [Calcium 500 + D (D3)] 500 mg-3.125 mcg (125 unit) Tablet 1 tab PO BID Discharge Orders: Discharge Order (Routine); Ordered 03/06/22 Ordered By: Wallace Pinto Admission Data Admit Date/Time: 03/05/22 09:52 Attending Provider: Blair,Wallace A Admit Provider: Wallace Pinto Primary Care Provider: Geena Encinas
[2022-03-06] MEDS: KETOROLAC 30 MG/ML VIAL IV SCH ×2 (06:50→11:12)
[2022-03-06] MEDS: ACETAMINOPHEN 500 MG TAB PO SCH (06:51)
[2022-03-06] MEDS: oxyCODONE HCL IR 5 MG TAB (IMMEDIATE RELEASE) PO PRN ×2 (07:50→11:49)
[2022-03-06] MEDS: DOCUSATE SODIUM 100 MG CAP PO SCH (07:50)
[2022-03-06] MEDS: ASPIRIN 81 MG ECTAB PO SCH (07:51)
[2022-03-06] MEDS ORDERED: dexAMETHasone 4 MG TAB PO SCH (08:00)
[2022-03-06] MEDS ORDERED: MULTIVITAMIN TAB PO SCH (09:00)
== END 2022-03-06 13:11 | disposition home or self-care (01) ==
LOC: ASU 06:27 → PACUINP 06:27 → 3E 15:04

== ENCOUNTER 2023-04-29 05:11 | Observation (INO) ==
--- NOTE | 2023-03-21 15:00 | PAT Medication Instructions ---
Medication Instructions Date of Service March 21, 2023 Home Medications ibuprofen 200 mg tablet 600 mg PO BID PRN omeprazole 20 mg capsule,delayed release 20 mg PO QAM ascorbic acid (vitamin C) 1,000 mg tablet (Vitamin C With Tona Hips) 1 g PO QAM calcium carbonate 500 mg-vitamin D3 3.125 mcg (125 unit) tablet 1 tab PO BID zinc 50 mg capsule 50 mg PO QAM amlodipine 10 mg tablet 10 mg PO QAM ASK your surgeon for instructions ibuprofen 200 mg tablet 600 mg PO BID PRN DO NOT take the morning of surgery ascorbic acid (vitamin C) 1,000 mg tablet (Vitamin C With Tona Hips) 1 g PO QAM calcium carbonate 500 mg-vitamin D3 3.125 mcg (125 unit) tablet 1 tab PO BID zinc 50 mg capsule 50 mg PO QAM Take morning of surgery With a small sip of water, OTHERWISE NOTHING TO EAT OR DRINK AFTER MIDNIGHT: omeprazole 20 mg capsule,delayed release 20 mg PO QAM amlodipine 10 mg tablet 10 mg PO QAM Take evening before surgery calcium carbonate 500 mg-vitamin D3 3.125 mcg (125 unit) tablet 1 tab PO BID Other Notes If you have any questions please call us at [phone] or [phone] or [phone] or [phone]
--- NOTE | 2023-03-30 14:18 | Anesthesiology Consultation ---
Date of Service March 30, 2023 Assessment & Plan (1) Encounter for pre-operative examination: - COVID screening: Per assessment on 03/30: No known COVID-19 positive contacts or current COVID-19 related symptoms. No recent Covid positive test result. - Outpatient joint assessment: Pt currently scheduled for inpatient pathway. If surgeon requests review for outpatient joint pathway, patient is not recommended candidate for outpatient joint program from anesthesia standpoint based on available information. - S/P Right TKA (03/05/22): SAB at L4-5 + PNB at [facility] - Anesthesia concern: Patient states she has concern regarding having PONV but has not actually had this occur. She states due to this concern, she has typically received preventative antiemetics perioperatively. Chart Review Chart Review: Acceptable Risk for Surgery and Patient seen in Pre Admission Testing Teaching & Discussion Pre-Anesthesia Teaching/Discussion Notes: Instructed NPO after midnight before surgery,except medications with 15 cc of water. Medication instructions provided according to the PAT guidelines. History Surgery Operation Date: 04/29/23 10:35 Proposed Procedures p Left Total Knee Arthroplasty - Wallace Pinto, Height/Weight Height: 5 ft 3 in Weight: 105.6 kg Allergies Allergy/AdvReac Type Severity Reaction Status Date / Time bee venom protein (honey bee) Allergy Severe ANAPHYLAXIS Verified 03/18/23 12:21 No Known Drug Allergies Allergy Unknown . Verified 03/18/23 12:21 Medications Home Medications Medication Instructions Recorded Confirmed Last Taken ibuprofen 200 mg tablet 600 mg PO BID PRN Pain 12/16/21 03/18/23 02/26/22 omeprazole 20 mg capsule,delayed 20 mg PO QAM 12/16/21 03/18/23 03/05/22 06:00 release ascorbic acid (vitamin C) 1,000 mg 1 g PO QAM 01/27/22 03/18/23 03/04/22 08:00 tablet (Vitamin C With Tona Hips) calcium carbonate 500 mg-vitamin 1 tab PO BID 01/27/22 03/18/23 03/04/22 20:00 D3 3.125 mcg (125 unit) tablet zinc 50 mg capsule 50 mg PO QAM 01/27/22 03/18/23 03/04/22 08:00 amlodipine 10 mg tablet 10 mg PO QAM 03/18/23 03/18/23 Unknown Past Medical History Medical History (Updated 03/30/23 @ 14:31 by Jane Dacosta) Cancer BCC (arm) COVID-19 virus detected 01/2022 (Home test 01/25/22, PCR 01/27/22)- cold symptoms, fatigue; resolved GERD (gastroesophageal reflux disease) HTN (hypertension) Kidney stones 2015 Migraine Hx Morbid obesity Osteoarthritis Sleep apnea CPAP (compliant) Exercise / Class Metabolic Activity III < 4 Walking/Shop/Light housework (one FS (CP, occasional SOB)) Past Family History Family History Mother Family history of reaction to anesthesia PONV Grandmother (Maternal) Family history of reaction to anesthesia PONV-SLOW TO WAKE UP Aunt No problems noted. Family/Other Family history of diabetes mellitus Uncle Family history of diabetes mellitus Past Surgical History Surgical History History of bilateral tubal ligation History of breast biopsy "Benign" History of colonoscopy 2015 History of dilatation and curettage History of lithotripsy History of right knee joint replacement Right TKA (03/05/22): SAB at L4-5 + PNB at [facility] Past Anesthesia History No Hx of Anesthesia Complications Mother/grandmother- "slow to wake" History of PONV No Hx of PONV and No Hx of Motion Sickness Social History Smoking Status: Former smoker Do You Dip or Chew Tobacco: No Smoking End Date: Hx Alcohol Use: Yes Alcohol type: wine alcohol intake frequency: a few times a month Hx Substance Use: No substance use type: does not use Review of Systems Patient denies chest pain, shortness of breath, fever, chills, cough, wheezing, palpitations. Physical Exam Vital Signs VITALS BP 100/61 P 94 TEMP 98.3 SP02 95%RA RESP 18 PHYSICAL Full cervical extension range of motion. Full TMJ range of motion. TMD 3 finger breaths Mallampati Score 2 Dentition: intact, + possible crowns Lungs: clear throughout to auscultation Cardiac: regular rate and rhythm, no murmurs noted Spine: normal Carotid arteries: negative bruit Extremities: no LE edema Thick neck Lab Results Anesthesia Preop Results Results Anesthesia Widget: WBC 8.22 K/ul (4.8-10.8) 03/30/23 Hgb 12.5 g/dl (12.0-16.0) 03/30/23 Hct 39.3 % (37.0-47.0) 03/30/23 Plt 281 K/uL (130-400) 03/30/23 Na 143 mmol/L (136-145) 03/30/23 K 3.5 mmol/L (3.5-5.1) 03/30/23 Cl 109 mmol/L (98-107) H 03/30/23 CO2 27 mmol/L (21-32) 03/30/23 BUN 18 mg/dl (6-23) 03/30/23 Creat 0.70 mg/dl (0.6-1.2) 03/30/23 Glucose Level 115 mg/dl (70-99(Fasting)) H 03/30/23 PT 10.9 Seconds (9.0-12.0) 03/30/23 PTT 23.8 Seconds (21.0-31.0) 03/30/23 INR 1.0 (0.9-1.1) 03/30/23 Blood Type O Positive 03/30/23 Antibody Screen NEGATIVE 03/30/23 Testing Electrocardiogram Date: 03/30/23 NSR at 95bpm. NS ST/TWA. unconfirmed report. Chest X-Ray Date: 03/30/23 FINDINGS: No lines and tubes are seen. The cardiomediastinal silhouette is normal. The lungs are clear. No evidence of pleural effusion or pneumothorax. IMPRESSION: No acute chest disease.
[2023-04-29] MEDS ORDERED: ACETAMINOPHEN 500 MG TAB PO SCH (06:00)
[2023-04-29] MEDS ORDERED: dexAMETHasone 4 MG TAB PO SCH (06:00)
[2023-04-29] MEDS ORDERED: LR 500ML BOLUS, THEN 15ML/HR IV SCH (06:00)
[2023-04-29] MEDS ORDERED: ceFAZolin 2000MG 2,000 MG/15 ML SYR IV SCH (06:00)
[2023-04-29] MEDS ORDERED: FAMOTIDINE 20 MG TAB PO SCH (06:00)
[2023-04-29] MEDS ORDERED: TRANEXAMIC ACID 1,000 MG **IV Pre-op IV SCH (06:00)
[2023-04-29] MEDS ORDERED: GABAPENTIN 600 MG DOSE PO SCH (06:00)
[2023-04-29] MEDS ORDERED: TRANEXAMIC ACID 1,000 MG **IV Intra-op IV SCH (06:00)
[2023-04-29] MEDS ORDERED: ORTHO JOINT MIX INFIL SCH (06:00)
[2023-04-29] MEDS ORDERED: LR 60ML/HR IV SCH (06:00)
[2023-04-29] MEDS ORDERED: DEXAMETHASONE SOD INJ 4 MG/ML VIAL ONE (06:14)
[2023-04-29] MEDS ORDERED: BUPIVACAINE 0.5 % 5 MG/1 ML PF 10ML VIAL ONE (06:14)
[2023-04-29] MEDS ORDERED: EPINEPHrine INJ 1 MG/ML AMP ONE (06:14)
[2023-04-29] MEDS ORDERED: BUPIVACAINE 0.25% PF 30 ML VIAL ONE (06:14)
--- NOTE | 2023-04-29 06:23 | History & Physical Bridge Note ---
Date of Service April 29, 2023 History & Physical Bridge Note I have examined the patient, reviewed the History & Physical and in the interval since the performance of the History & Physical I have noted the following changes of clinical significance: no changes noted
[2023-04-29] MEDS ORDERED: ORTHO JOINT ANESTHETIC ONE (06:37)
[2023-04-29] MEDS ORDERED: MIDAZOLAM HCL 1 MG/ML 2ML VIAL ONE (06:49)
[2023-04-29] MEDS ORDERED: fentaNYL citrate PF 100 MCG/2 ML VIAL ONE (06:50)
[2023-04-29] MEDS ORDERED: ATROPINE SULFATE 0.1 MG/ML 10ML SYR IV PRN (07:18)
[2023-04-29] MEDS ORDERED: PROMETHAZINE HCL 6.25 MG in SODIUM CHLORIDE 0.9% 50 ML IV PRN (07:18)
[2023-04-29] MEDS ORDERED: fentaNYL citrate PF 100 MCG/2 ML VIAL IV PRN (07:18)
[2023-04-29] MEDS ORDERED: ONDANSETRON INJ 2 MG/ML 2 ML VIAL IV PRN ×2 (07:18→10:17)
[2023-04-29] MEDS ORDERED: ePHEDrine sulfate 50 MG/ML AMP IV PRN (07:18)
[2023-04-29] MEDS ORDERED: PROPOFOL IV EMULSION 10 MG/ML 20 ML VIAL IV ONE (07:36)
[2023-04-29] MEDS ORDERED: ONDANSETRON INJ 2 MG/ML 2 ML VIAL ONE ×2 (07:36→08:36)
[2023-04-29] MEDS ORDERED: PHENYLEPHRINE HCL 10 MG/ML VIAL ONE (08:01)
--- NOTE | 2023-04-29 08:20 | Operative Report ---
PG Post Operative Report Pre & Post Diagnosis Operation Date: 04/29/23 07:00 Pre-Op Diagnosis: Left Knee Degenerative Joint Disease Post-Op Diagnosis: Left Knee Degenerative Joint Disease I identified the patient and participated in the time-out.: Yes Procedure Operation Date: 04/29/23 07:00 Actual Procedures p Left Total Knee Arthroplasty(Left) - Wallace Pinto DO Surgeon Wallace Pinto DO Police [employer] Dispatcher Wallace Higginbotham PA-C Estimated Blood Loss 30 Findings Consistent with Post-Op Diagnosis Specimens Left femoral tibial bone Description of Procedure Implants used: I used a Anikt Persona total knee arthroplasty system with a size 9 narrow femur, D tibia, 31 oval patella, and a size 12 CPS polyethylene bearing. All c omponents were cemented in place with Biomet cement. Tamera arrived [facility] for the above procedure. She was seen in the preoperative holding area and the operative extremity was identified and signed. She was given a preoperative antibiotic, TXA, a spinal anesthetic and an adductor nerve block. She was taken back to the operating room and laid on the table in supine position. She was given basic sedation. The operative knee was then prepped and draped in sterile fashion. A timeout was done, and the patient and the operative extremity was properly identified. A midline incision was made directly over the patella. Dissection was taken down to the extensor mechanism. A midvastus arthrotomy was used. The medial retinaculum was released and the fat pad was mostly excised. The knee was flexed and the ACL, PCL, and meniscus were removed. A drill was sent down the center of the femoral canal followed by an intramedullary fly. Off that fly a distal femoral cutting block was placed. 9 mm was resected off the distal femur at 5 of valgus. A posterior referencing AP sizing guide was then placed on the distal femur. The femur measured to be a size 9. 2 drill holes were placed in 3 of external rotation. A 4-in-1 cutting block was then impacted into place. Anterior, posterior, and chamfer cuts were then made. The proximal tibia was then exposed. An external tibial alignment guide was placed. A tibial cut guide was then anchored in place and the proximal tibia was then resected. The posterior aspect of the knee was then opened up and any additional meniscus fragments and osteophytes were removed. The tibia measured to be a size D. The tibial plate was then placed in the appropriate rotation and the tibia was drilled and punched. Trial components were then placed. I used a size 31 oval polyethylene insert. The knee was brought through a full range of motion and felt to be stable. The peg holes for the femoral component were then drilled. The patella was then everted and 9 mm was resected off the posterior aspect of the patella. The patella measured to be a size 12 CPS. 3 peg holes were then drilled. A trial patella was placed. The knee was once again brought through a full range of motion and felt to be stable. Trial components were then removed. The surrounding soft tissues were injected with 100 cc of an orthopedic pain control cocktail. All components were then cemented into place with Biomet cement. The final polyethylene insert was then snapped into place. Once cement was dry the tourniquet was deflated. Hemostasis was obtained. A dilute betadyne lavage was then done for 3 minutes. The joint was then irrigated with normal saline solution. The midvastus arthrotomy was then closed with #1 Vicryl suture. The skin was closed with 2-0 Vicryl, 3-0V lock suture, and kathy. A soft compressive dressing was placed. She was then transferred to a hospital bed and taken to the postanesthesia care unit in stable condition. She tolerated the procedure well. Wallace Higginbotham PA-C, was present for the entire procedure. He was critical for patient positioning, prepping, draping, retraction exposure, wound closure and application of sterile dressing. I attest to the content of the Intraoperative Record and any orders documented therein. Any exceptions are noted below.
[2023-04-29] MEDS ORDERED: ARTIFICIAL TEARS OP OINT 3.5 GM TUBE ONE (09:57)
[2023-04-29] MEDS ORDERED: HYDROmorphone INJ 0.5 MG/0.5 ML SYR IV PRN (10:17)
[2023-04-29] MEDS ORDERED: SODIUM CHLORIDE 0.9% 1,000 ML IV SCH (10:17)
[2023-04-29] MEDS ORDERED: MAGNESIUM HYDROXIDE SUSP 30 ML UDC PO PRN (10:17)
[2023-04-29] MEDS ORDERED: NALOXONE HCL 0.4 MG/1 ML VIAL/CARP IV PRN (10:17)
[2023-04-29] MEDS ORDERED: METOCLOPRAMIDE HCL INJ 5 MG/ML 2 ML VIAL IV PRN (10:17)
[2023-04-29] MEDS ORDERED: bisacodyL 10 MG SUPP PR PRN (10:17)
--- NOTE | 2023-04-29 10:39 | Anesthesiology Progress Note ---
Date of Service April 29, 2023 Anesthesia Post Procedure Vital Signs Vital Signs: Temp Pulse Pulse Resp BP Pulse Ox O2 Del Method 04/29/23 10:25 36.5 C 96 H 16 118/78 96 Nasal Cannula 04/29/23 09:55 36.5 C 98 H 18 126/82 93 Room Air 04/29/23 09:30 97 H 14 122/87 94 Nasal Cannula 04/29/23 09:15 97 H 15 113/76 94 Nasal Cannula 04/29/23 09:00 36.5 C 99 H 15 111/74 92 Room Air 04/29/23 08:50 91 H 14 117/74 98 Oxymask 04/29/23 08:41 37.2 C 96 H 22 120/79 94 Oxymask 04/29/23 05:42 36.5 C 88 20 149/98 H 92 Room Air O2 Flow Rate 04/29/23 10:25 2 04/29/23 09:55 04/29/23 09:30 2 04/29/23 09:15 2 04/29/23 09:00 04/29/23 08:50 6 04/29/23 08:41 10 04/29/23 05:42 Pain Intensity Left Knee: Pain Intensity: 4 Transfer of Care Handoff Completed per policy Notes Mental Status: alert / awake / arousable Patient Amnestic to Procedure: Yes Nausea / Vomiting: adequately controlled Pain: adequately controlled Airway Patency, RR, SpO2: stable & adequate BP & HR: stable & adequate Hydration State: stable & adequate Neuraxial Anesthesia: was administered and sensory block is resolving Anesthetic Complications: no major complications apparent and Pt Satisfied with anesthetic care
--- NOTE | 2023-04-29 10:48 | XRay Report ---
XR knee LT 1 or 2V routine CLINICAL HISTORY: Surgical Post Op TECHNIQUE: 2 views of the left knee were obtained. Comparison: None available at the time of this dictation. FINDINGS: Patient is status post total knee arthroplasty with expected postsurgical changes including soft tiss ue swelling and subcutaneous emphysema. No periarticular lucency or hardware fracture is seen. IMPRESSION: Degenerative changes without evidence of acute injury. ACT 112: Negative or not required by law. Electronically signed by: Nahum Shearer M.D. 04/29/2023 10:47 AM
[2023-04-29] MEDS: amLODIPine BESYLATE 5 MG TAB PO SCH (12:08)
[2023-04-29] MEDS: KETOROLAC 30 MG/ML VIAL IV SCH ×2 (12:09→18:30)
[2023-04-29] MEDS: MULTIVITAMIN TAB PO SCH (12:09)
[2023-04-29] MEDS: DOCUSATE SODIUM 100 MG CAP PO SCH ×2 (12:09→20:43)
[2023-04-29] MEDS: ASPIRIN 81 MG ECTAB PO SCH ×2 (12:09→20:43)
[2023-04-29] MEDS: ceFAZolin 2000MG 2,000 MG/15 ML SYR IV SCH ×2 (15:16→22:17)
[2023-04-29] MEDS: ACETAMINOPHEN 500 MG TAB PO SCH ×2 (15:16→22:16)
[2023-04-29] MEDS ORDERED: SENNA 8.6 MG TAB PO SCH (21:00)
[2023-04-29] MEDS: oxyCODONE HCL IR 5 MG TAB (IMMEDIATE RELEASE) PO PRN (22:20)
[2023-04-30] MEDS: KETOROLAC 30 MG/ML VIAL IV SCH ×3 (00:11→11:35)
[2023-04-30] MEDS: ACETAMINOPHEN 500 MG TAB PO SCH (05:49)
[2023-04-30] MEDS ORDERED: dexAMETHasone 4 MG TAB PO SCH (08:00)
--- NOTE | 2023-04-30 08:38 | Orthopedic Progress Note ---
Date of Service April 30, 2023 Assessment & Plan (1) Status post left knee replacement: Overall she is doing very well. She is not having much pain in the left knee. She will be seen by physical therapy today for ambulation and range of motion exercises. She is on aspirin for DVT prophylaxis. She can be discharged home later today. She will follow-up with orthopedics in 2 weeks. Subjective Tamera was seen and examined at bedside this morning. Overall she is doing very well. She is not having much pain in the left knee. She has been up and ambulate to the bathroom. She has no complaints.. Review of Systems All systems reviewed & are unremarkable except as noted in HPI & below. Physical Exam On physical examination left knee, the dressing is clean and dry. Her leg is out full extension. She has active dorsiflexion plantarflexion of her left ankle.. Results & Data Results & Data Laboratory Results . Diagnostic Findings Postoperative x-rays of the left knee show the prosthesis to be in anatomic alignment without any evidence of fracture, dislocation, or loosening.. PG Care Time/CCT Total # of Minutes Spent Total Time Spent with Patient: Total time spent is greater than 50% in coordination of care (as documented) at patient's floor/unit and/or counseling patient: Coding Level of Care Code 84751 Post Operative Follow-Up Diagnoses Status post left knee replacement Z96.652
--- NOTE | 2023-04-30 08:39 | Discharge Summary ---
Date of Service April 30, 2023 Principal Diagnosis Same as "Discharge Diagnosis" noted below under Discharge Instructions. Discharge Exam On physical examination left knee, the dressing is clean and dry. Her leg is out full extension. She has active dorsiflexion plantarflexion of her left ankle.. Discharge Data Procedures Performed Operation Date: 04/29/23 07:00 Actual Procedures p Left Total Knee Arthroplasty(Left) - Wallace Pinto DO Ordered Studies 04/29/23 05:00 US - OR guided needle placemen Routine Hospital Course (1) Status post left knee replacement: On April 29, 2023 Tamera arrived at [facility] and underwent a left knee replaced without complication. She had a spinal anesthetic. Postoperatively she was started on aspirin for DVT prophylaxis and transferred to the general orthopedic floors. Her hospital course was uneventful. On postop day #1, her vital signs were stable and her pain was well controlled. She was able to participate well with physical therapy doing ambulation and range of motion exercises. She was then discharged home. She will follow-up with orthopedics in 2 weeks. PG Care Time/CCT Total # of Minutes Spent Total Time Spent with Patient: Total time spent is greater than 50% in coordination of care (as documented) at patient's floor/unit and/or counseling patient: Discharge Plan Discharge Items Patient Disposition: Home - Home Health Services Reason For Visit: Left Knee Degenerative Joint Disease Discharge Diagnosis: Left knee replacement Activity: Per Instructions section Non-emergency contact: Surgeon Call non-emergency contact if: your wound has increased redness and your wound has increased drainage Follow-up/Referrals: Geena Encinas DO [Primary Care Provider] - Diet: Regular Addtl Attending Provider Instructions: Activity and Therapy Recommendations: * If you are using [facility] then therapy will be provided at your home until they feel you have accomplished all of your goals. * If you are using [facility] then Physical Therapy will be provided until they feel you are ready to start Outpatient Physical Therapy. * If you are not using home therapy then Outpatient Physical Therapy should start about 3-5 days from your day of surgery. Therapy will last about 6-10 weeks * It is important not to put a pillow under your knee when you are relaxing or sleeping. It is just as important to make sure you are getting your knee perfectly straight as it is to regain your knee bend. * You were shown a series of exercises in the hospital. Do these exercises three times each day including the exercises you were shown in physical therapy. * Get up and walk several times each day. For the first four weeks, try not to stand or walk for more than one hour at a time. If you do stand or walk for more than one hour, you will not hurt anything, but your leg will likely swell. * As you feel comfortable, you may change from the walker or crutches to a cane and then to independent walking. Medications: * Narcotic You will likely be sent home from the hospital with a prescription for the narcotic pain medication that worked best throughout your stay. * Aspirin Most patients will be required to take Aspirin 81mg twice a day for 6 weeks after surgery. This is obtained [id number] and a prescription is not necessary. * Other medications may be prescribed for specific circumstances. If you have any questions, please call the office at . * Resume previous home medications unless otherwise instructed TEDs/Elastic Stockings: The white elastic stockings help limit swelling and prevent blood clots from fo rming in your legs.~ The more you wear them, the more they work. Wear them for six weeks. Dressing Care: The dressing can be changed after physical therapy on postop day #1. Daily dry dressing changes for a few days, especially if the incision is still draining some. If the incision is not draining then you may leave the kathy open to air. If there is a little bit of drainage or if the kathy are getting stuck on your clothing then cover the incision with a dry dressing. The kathy will be removed at your 2 week follow-up appointment. Showering: You may shower 5 days from the day of surgery as long as the incision is no longer draining. You may shower with the kathy exposed. Let soapy water run over the kathy and pat them dry. Do not scrub or soak the incision. Things To Watch For: * Drainage from the incision site that occurs more than one week after your surgery. * Increased redness at the incision site. * Fever above 102 degrees Fahrenheit. * Unusual chest pain or shortness of breath. * Call [facility] at with any of the above problems Follow-Up Visit: Follow-up with Dr. Pinto's PA (Wallace Higginbotham) 2-3 weeks after your day of surgery. He will remove your kathy and answer any questions. If you have any additional questions or concerns, Dr Pinto is usually in the office at the same time and will be available An appointment was probably scheduled when you signed-up for surgery in the office. If you have any questions call Office Instructions: More detailed instructions as well as Frequently Asked Questions were provided in a folder by our office when you signed-up for surgery. Please review these instructions when you get home. If you have any further questions or concerns, please feel free to call the office at [phone] Pending Studies at Discharge: No Stand-Alone Forms: [employer], Smoking Cessation Medications and DC Order Prescriptions: New oxycodone 5 mg Tablet 5 mg PO Q4H PRN (Reason: pain) Qty: 30 0RF Continued omeprazole 20 mg capsule,delayed release(DR/EC) 20 mg PO QAM ibuprofen 200 mg tablet 600 mg PO BID PRN (Reason: Pain) ascorbic acid (vitamin C) [Vitamin C With Tona Hips] 1,000 mg Tablet 1 g PO QAM calcium carbonate-vitamin D3 500 mg-3.125 mcg (125 unit) Tablet 2 tab PO BID Rx Instructions: 2 gummies in am and 2 in pm amlodipine 10 mg Tablet 10 mg PO QAM Changed aspirin 81 mg Tablet,Chewable 81 mg PO BID 42 Days Qty: 0 0RF Admission Data Admit Date/Time: 04/29/23 08:40 Attending Provider: Wallace Pinto Admit Provider: Wallace Pinto Primary Care Provider: Geena Encinas
[2023-04-30] MEDS: amLODIPine BESYLATE 5 MG TAB PO SCH (08:48)
[2023-04-30] MEDS: MULTIVITAMIN TAB PO SCH (08:48)
[2023-04-30] MEDS: ASPIRIN 81 MG ECTAB PO SCH (08:50)
[2023-04-30] MEDS: DOCUSATE SODIUM 100 MG CAP PO SCH (08:50)
[2023-04-30] MEDS: oxyCODONE HCL IR 5 MG TAB (IMMEDIATE RELEASE) PO PRN (12:12)
== END 2023-04-30 13:24 | disposition home health service (06) ==
LOC: ASU 05:11 → 3E 05:11